=== PATIENT | male | born 1965 | race Caucasian/White ===

== ENCOUNTER 2017-02-10 21:27 | Emergency (ER) | payer OTHER ==
[~2017-02-10] VITALS: Ht 188 cm; Wt 99.8 kg
[2017-02-10 21:37] VITALS: BP 147/97
--- NOTE | 2017-02-10 21:50 | ED THROAT/DENTAL COMPLAINT ---
History of Present Illness General Chief Complaint: General Adult Stated Complaint: ORAL SURGERY 4 WKS AGO, FEVERS, NEUROPATHY Source: patient Exam Limitations: no limitations Vital Signs & Intake/Output Vital Signs & Intake/Output Vital Signs Date Time Temp Pulse Resp B/P B/P Pulse O2 O2 Flow FiO2 Mean Ox Delivery Rate 02/107 99.0 75 18 147/97 99 ED Intake and Output 02/11 0000 02/10 1200 Intake Total 0 Output Total Balance 0 Intake, Oral 0 Patient 220 lb Weight Weight Reported by Patient Measurement Method Allergies Coded Allergies: NO KNOWN ALLERGIES (01/07/15) Reconcile Medications Amoxicillin/Potassium Clav (Augmentin 875-125 Tablet) 875 MG-125 MG TABLET 1 TAB PO BID DENTAL INFECTION Triage Note: PT TO ED C/O TEETH AND FACE PAIN FOR 4 WEEKS AFTER ORAL SURGERY. HAS HAD LOW GRADE TEMP SINCE. TEMP 99.0 IN TRIAGE. C/O FEELING "RUN DOWN" IS NEWLY DIAGNOSED DIABETIC "A WEEK AGO" HAS TAKEN METFORMIN FOR 4 DAYS. 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 yes Onset: Gradual Duration: day(s): Timing: recent history Injury Environment: home Severity: mild, moderate Modifying Factors: Improves With: rest. Associated Symptoms: dental pain HPI: 51-year-old gentleman history of recently being diagnosed with diabetes, also history of dental surgery 1 month ago, presents with dental pain in his upper front gums. He also notes numbness symmetrically in both of his toes. He notes that he recently had blood work drawn by his PMD and was noted to have a glucose in the 400s. His primary care doctor diagnosed him with diabetes and started him on metformin. He's been on metformin for the past 4-5 days. He notes that he is otherwise well. He has no chest pain shortness of breath fever chills nausea vomiting diarrhea. Past History Travel History Traveled to [place] past 21 day No Medical History Any Pertinent Medical History? see below for history Respiratory: PNEUMOTHORAX Gastrointestinal: diverticulitis Musculoskeletal: fracture Endocrine: diabetes Surgical History Surgical History: none Psychosocial History What is your primary language Cypriot Tobacco Use: Never used ETOH Use: occasional use Illicit Drug Use: denies illicit drug use Family History Hx Contributory? No Review of Systems Review of Systems Constitutional: Reports: no symptoms. EENTM: Reports: no symptoms. Respiratory: Reports: no symptoms. Cardiovascular: Reports: no symptoms. GI: Reports: no symptoms. Genitourinary: Reports: no symptoms. Musculoskeletal: Reports: no symptoms. Skin: Reports: no symptoms. Neurological/Psychological: Reports: no symptoms. Hematologic/Endocrine: Reports: no symptoms. Immunologic/Allergic: Reports: no symptoms. All Other Systems: Reviewed and Negative Physical Exam Physical Exam General Appearance: well developed/nourished, mild distress Head: atraumatic, normal appearance Eyes: Bilateral: normal appearance. Nose: normal inspection Mouth/Throat: upper gums tenderness in the frontal region. Mild hyperemia. No sign of overt abscess. Neck: normal inspection, supple, full range of motion Cardiovascular/Respiratory: normal breath sounds, normal peripheral pulses, regular rate/rhythm, no respiratory distress Gastrointestinal: organmegaly Back: normal inspection Neurologic/Psych: subjective decreased sensation in both toes. There is no swelling erythema or focal tenderness in his lower extremities. Deep tendon reflexes distal pulses and strength are benign Skin: intact (see above) Core Measures ACS in differential dx? No Severe Sepsis Present: No Septic Shock Present: No Progress Differential Diagnosis: dental infection versus abscess versus other. Patient also has recent diagnosis of diabetes. He also has peripheral neuropathy. Plan of Care: Discussed at length. In review of his laboratory results, he had an sedimentation rate of 2. The labs were drawn on February 06. His other labs were benign except for a glucose in the 400s. I suggested that he continue his metformin and follow up closely with his primary care doctor. I prescribed him Augmentin for a mild dental infection and suggested he follow-up with his dentist. He expressed understanding at this plan. I also encouraged him to return to emergency department should his symptoms worsen. Departure Departure Disposition: HOME OR SELF CARE Condition: Stable Clinical Impression Primary Impression: Diabetes Secondary Impressions: Dental infection, Peripheral neuropathy Referrals: MARGARITO LANE MD (PCP/Family) Departure Forms: Customer Survey General Discharge Information Prescriptions: Current Visit Scripts Amoxicillin/Potassium Clav (Augmentin 875-125 Tablet) 1 TAB PO BID #20 TAB
[2017-02-10] MEDS ORDERED: AUGMENTIN 875-1 EACH PO (22:20)
== END 2017-02-10 22:29 ==
LOC: ERH 21:27
DX: K04.7 Periapical abscess without sinus (principal); E11.40 Type 2 diabetes mellitus with diabetic neuropathy, unspecified